=== PATIENT | male | born 1965 | race Caucasian/White ===

== ENCOUNTER → 2017-10-05 | Outpatient (CLI) | payer OTHER ==
[~2017-10-05] MED LIST: ALP1 PO; AMLO-98 PO; ASCO-201 PO; BENADRYL; CEP500 PO; CYAN100T31 PO; ERG400 PO; ESCI20TA38 PO; GABA-1 PO; LOR75 PO; MAALOX; MULT-820 PO; PANT20TA26 PO; PER PO; PRED-314 PO; PSE30 PO; RANI-324 PO; UBID10CA11 PO; VEN75 PO; VITA-324 PO; [UNRECOGNIZED DRUG - CODE] TP; [UNRECOGNIZED DRUG - OTHER]; [UNRECOGNIZED DRUG - OTHER] PO
--- NOTE | 2017-10-05 13:38 | EKG ---
FACILITY: [facility] PATIENT NAME: ZHANG ZAPIEN : [id number] MR: [id number] V: [id number] EXAM DATE: ORDERING PHYSICIAN: FREYA MARIE TECHNOLOGIST: DONN Rodrigues Reason : PRE-OP KNEE Blood Pressure : / mmHG Vent. Rate : 068 BPM Atrial Rate : 068 BPM P-R Int : 142 ms QRS Dur : 096 ms QT Int : 426 ms P-R-T Axes : 066 077 018 degrees QTc Int : 452 ms Normal sinus rhythm Normal ECG When compared with ECG of 04-FEB-2014 14:51, No significant change was found Confirmed by FREYA MAZARIEGOS ([id number]) on 10/05/2017 11:24:05 PM Referred By: FRANK Confirmed By:FREYA MAZARIEGOS
== END ==
LOC: LAB 13:04
PROVIDERS: ATTEND Anesthesiology
DX: Z01.812 Encounter for preprocedural laboratory examination (principal); Z01.810 Encounter for preprocedural cardiovascular examination; S83.212A Bucket-handle tear of medial meniscus, current injury, left knee, initial encounter
CPT/HCPCS: 36415; 82040; 82247; 82310; 82374; 82435; 82565; 82947; 84075; 84132; 84155; 84295; 84450; 84460; 84520; 93005

== ENCOUNTER → 2018-05-24 | Outpatient (CLI) | payer OTHER ==
[~2018-05-24] MED LIST changes: +IOPAMIDOL 76% 75 ML INFUS BTL 75 ML ONE; -RANI-324 PO; +RANI-366 PO
--- NOTE | 2018-05-24 08:49 | RADIOLOGY IMAGING REPORT ---
FACILITY: [facility] PATIENT NAME: Erasmo Mcgee : 1965 MR: [id number] V: [id number] EXAM DATE: ORDERING PHYSICIAN: MARIA C GARCIA TECHNOLOGIST: Location: [facility] [place] Patient: Erasmo Mcgee : 1965 Visit/Account:[id number] Date of Sevice: 05/24/2018 ABDOMEN/PELVIS WITH CONTRAST HISTORY: Central abdominal mass TECHNIQUE: Following administration of IV contrast contiguous axial images acquired through the abdom en/pelvis. Coronal and sagittal reformatting also performed. Dose Lowering Technique One of the following dose optimization techniques was utilized in the performance of this exam: Autom ated exposure control; adjustment of the mA and/or kV according to the patient's size; or use of an i terative reconstruction technique. Specific details can be referenced in the facility's radiology C T exam operational policy. CONTRAST: 75 mL Isovue-370 COMPARISON: None. FINDINGS: Visualized lung bases: Linear stranding in the lung bases likely represent scarring versus atelectas is. Hepatobiliary: Postsurgical changes from a cholecystectomy Spleen: Negative. Adrenals: Negative. Pancreas: Negative. Kidneys ureters or bladder: Negative. Genitalia: Prostate gland is mildly enlarged contains coarse calcifications and impinges upon the fl oor the bladder GI: There are postsurgical changes of the stomach in addition to what appears to be a disconnected l ap band.. Also noted in the mid abdomen just to left of midline is a small bowel anastomosis. This loop of bowel is fluid-filled and dilated measuring approximately 4.6 cm in diameter. This may repre sent an atonic segment of bowel..There is suggestion of a intussusception best appreciated on coronal image #37 which could also account for this finding however no other dilated loops of bowel are appr eciated Vessels/spaces/nodes: Mild to moderate atherosclerotic calcifications in the abdominal aorta and bra nch vessels in the distalmost portion the abdominal aorta just proximal to the bifurcation there appe ars to be at least a moderate amount of mural thrombus or soft plaque additionally. Bones/soft tissues: There is a moderate to large ventral hernia in the midline just above the umbili cus containing edematous fat/omentum. The hernia opening measures approximately 2.6 cm.. There is an additional ventral hernia just above this level also containing edematous fat with the he rnia opening measuring approximately 1.1 cm and just below the largest hernia to the left of midline additional small ventral hernia also containing fat hernia opening measuring approximately 8 mm in di ameter Incidentally noted are postsurgical changes at L4-5 from posterior lumbar interbody fusion. There is a grade 1 anterior listhesis of L4 with respect L5 Additional findings: None pertinent. IMPRESSION: Linear stranding at lung bases likely represent scarring versus atelectasis Postsurgical changes from a cholecystectomy Postsurgical changes of the stomach are noted in addition to what appears to be a disconnected lap ba nd. In the mid abdomen just to left of midline is a small bowel anastomosis. This bowel is fluid-filled and dilated measuring approximately 4.6 cm in diameter. This may represent an atonic segment of valencia l. There is however suggestion of an intussusception best appreciated on coronal image #37 which cou ld also account for this finding however no other dilated loops of bowel are appreciated. If this is of clinical concern this could be further evaluated with a small bowel series. 3. Ventral hernias above the largest is just above the umbilicus containing edematous fat/omentum with the hernia openin g measuring approximately 2.6 cm in diameter Report Dictated By: Iva Argueta MD at 05/24/2018 8:31 AM Report E-Signed By: Iva Argueta MD at 05/24/2018 8:45 AM WSN:[email or web address]
== END ==
LOC: CT 04:00
PROVIDERS: ATTEND Nurse Practitioner Family
DX: J98.11 Atelectasis (principal); Z90.49 Acquired absence of other specified parts of digestive tract; Z98.84 Bariatric surgery status; K43.9 Ventral hernia without obstruction or gangrene; K63.89 Other specified diseases of intestine
CPT/HCPCS: 36415; 74177; 82565; Q9967

== ENCOUNTER → 2019-01-07 | Outpatient (CLI) | payer OTHER ==
[~2019-01-07] MED LIST changes: -IOPAMIDOL 76% 75 ML INFUS BTL 75 ML ONE; -RANI-366 PO; +RANI-54 PO
== END ==
LOC: RESP 00:09
PROVIDERS: ATTEND Nurse Practitioner Family
DX: R07.9 Chest pain, unspecified (principal); I10 Essential (primary) hypertension; E78.00 Pure hypercholesterolemia, unspecified
CPT/HCPCS: 93017; 93350

== ENCOUNTER → 2019-02-28 | Outpatient (CLI) | payer OTHER ==
[~2019-02-28] MED LIST changes: +BARIUM SULFATE 176 GM BTL PO ONE; +BARIUM SULFATE 340 GM POWD ONE; +OMEP-126 PO
--- NOTE | 2019-02-28 10:27 | RADIOLOGY IMAGING REPORT ---
FACILITY: [facility] [place] PATIENT NAME: Erasmo Mcgee : 1965 MR: [id number] V: [id number] EXAM DATE: ORDERING PHYSICIAN: FREYA MASON TECHNOLOGIST: Location: [facility] Patient: Erasmo Mcgee : 1965 Visit/Account:[id number] Date of Sevice: 02/28/2019 Esophagram Indication: Dysphagia. Previous episode of upper esophageal tightening. Comparison: None available Findings: The patient was given thin and thick barium to drink. Single column and air contrast views were obta ined of the esophagus. The fluoroscopy time measured 1.7 minutes with a dose area product of 436.67u Gy*m2. The most distal esophagus appears mildly patulous. There is no evidence of focal stricture. No muco jessica abnormality/filling defect/ulceration is seen. Views of the vallecula and piriform sinuses are normal. There is normal esophageal motility. With the patient lying down, multiple episodes of gastroesophageal reflux are identified. There was an episode of reflux to the level of the thoracic inlet. This was symptomatic by the patient. There is a sliding-type hiatal hernia. There has been prior gastric bypass procedure. IMPRESSION: 1. Patulous distal esophagus with normal esophageal motility. 2. Sliding-type hiatal hernia. 3. Gastroesophageal reflux to the level of the thoracic inlet. This was symptomatic by the patient. Report Dictated By: Jl Otoole at 02/28/2019 10:11 AM Report E-Signed By: Jl Otoole at 02/28/2019 10:19 AM WSN:[email or web address]
== END ==
LOC: RAD 03:29
PROVIDERS: ATTEND Surgery
DX: K44.9 Diaphragmatic hernia without obstruction or gangrene (principal); K21.9 Gastro-esophageal reflux disease without esophagitis
CPT/HCPCS: 74220